=== PATIENT | female | born 1985 | race Caucasian/White ===

== ENCOUNTER 2016-11-11 17:56 | Emergency (ER) | payer OTHER ==
[2016-11-11 18:10] VITALS: BP 139/90; PULSE 99; TEMP 98.5; BMI 28.3
[2016-11-11] MEDS ORDERED: predniSONE 20 MG TABLET (UD) ONE (18:54)
[2016-11-11] MEDS ORDERED: ALBUTEROL SO4 2.5/IPRATROPIUM 0.5 INH SOL 3 ML VIAL.NEB. NEB ONE ×3 (18:55→19:30)
[2016-11-11] MEDS ORDERED: predniSONE 20 MG TABLET (UD) PO ONE (19:01)
[2016-11-11] MEDS ORDERED: KETOROLAC TROMETHAMINE 60 MG/2 ML VIAL ONE (19:15)
--- NOTE | 2016-11-11 19:20 | PDOC ---
History of Present Illness - General Chief Complaint: Cold Symptoms Stated Complaint: PAIN, ACUTE Time Seen by Provider: 11/11/16 18:48 History Source: Patient Exam Limitations: No Limitations - History of Present Illness Initial Comments: 11/11/16 19:09 Patient is a 31-year-old female, history of asthma presents to the emergency department with one week history of bronchospasm, productive cough, wheezing. Patient denies any back pain, no chest pain or shortness of breath. No fever. Patient with back pain from coughing. Past Medical History: Denies. Allergies: No known allergies Medications: None Family History: Non-contributory Social History: Denies smoking, alcohol use, or IVDU Vital signs on arrival are notable for pulse of 99 Review of Systems GENERAL/CONSTITUTIONAL: No fever or chills. No weakness. No weight change. HEAD, EYES, EARS, NOSE AND THROAT: No change in vision. No ear pain or discharge. No sore throat. CARDIOVASCULAR: No chest pain or shortness of breath. RESPIRATORY: Cough, wheezing, no hemoptysis GASTROINTESTINAL: No nausea, vomiting, diarrhea or constipation. No rectal bleeding. GENITOURINARY: No dysuria, frequency, or change in urination. MUSCULOSKELETAL: No joint or muscle swelling or pain. No neck pain, lower back pain SKIN AND BREASTS: No rash or easy bruising. NEUROLOGIC: No headache, vertigo, loss of consciousness, or loss of sensation. HEMATOLOGIC/LYMPHATIC: No anemia, easy bleeding, or history of blood clots. ALLERGIC/IMMUNOLOGIC: No hives or skin allergy. No latex allergy. Physical Exam: GENERAL: The patient is awake, alert, and fully oriented, in no acute distress. HEAD: Normal with no signs of trauma. EYES: Pupils equal, round and reactive to light, extraocular movements intact, sclera anicteric, conjunctiva clear. ENT: Ears normal, nares patent, oropharynx clear without exudates. Moist mucous membranes. No uvula deviation NECK: Normal range of motion, supple without lymphadenopathy, JVD, or masses. LUNGS: Breath sounds with rhonchi bilaterally, expiratory wheezes, decrease at the bases, bronchospasm HEART: Regular rate and rhythm, normal S1 and S2 without murmur, rub or gallop. ABDOMEN: Soft, nontender, normoactive bowel sounds. No guarding, no rebound. No masses. No bruising or abrasions MUSCULOSKELETAL: Normal range of motion, no edema. No clubbing or cyanosis. No cords, erythema, or tenderness. No CVA Tenderness with fist. NEUROLOGICAL: Cranial nerves II through XII grossly intact. Normal speech, normal gait. SKIN: Warm, Dry, normal turgor, no rashes or lesions noted. Past History - Past Medical History Allergies/Adverse Reactions: Allergies Allergy/AdvReac Type Severity Reaction Status Date / Time No Known Drug Allergies Allergy Verified 11/11/16 18:10 fruit Allergy Itching Uncoded 11/11/16 18:10 Home Medications: Ambulatory Orders Pnv with Ca,No.72/Iron/FA [ Plus Tablet] 1 tab PO DAILY 03/23/16 Albuterol Sulfate Inhaler - [Ventolin HFA Inhaler -] 2 inh PO Q4H #1 inh Azithromycin [Zithromax 250mg Tablets -] 250 mg PO UTDICT #6 tab 11/11/16 Ibuprofen [Motrin -] 800 mg PO QID 11/11/16 Prednisone [Deltasone -] 20 mg PO DAILY #5 tablet 11/11/16 Anemia: No Asthma: Yes Cancer: No Cardiac Disorders: No CVA: No COPD: No CHF: No Dementia: No Diabetes: No GI Disorders: No Disorders: No HTN: No Hypercholesterolemia: No Liver Disease: No Seizures: No Thyroid Disease: No - Surgical History Abdominal Surgery: Yes (laproscopy) Appendectomy: No Cardiac Surgery: No Cholecystectomy: No Lung Surgery: No Neurologic Surgery: No Orthopedic Surgery: No - Suicide/Smoking/Psychosocial Hx Smoking History: Never smoked Have you smoked in the past 12 months: No Hx Alcohol Use: No Drug/Substance Use Hx: No Substance Use Type: None Hx Substance Use Treatment: No *Physical Exam - Vital Signs Last Vital Signs Temp Pulse Resp BP Pulse Ox 98.5 F 99 H 20 139/90 98 11/11/16 18:07 11/11/16 18:07 11/11/16 18:07 11/11/16 18:07 11/11/16 18:07 ED Treatment Course - Medications Given in the ED: ED Medications Discontinued Medications Generic Name Dose Route Start Last Admin Trade Name Freq PRN Reason Stop Dose Admin Albuterol/Ipratropium 1 amp 11/11/16 19:01 11/11/16 19:03 Duoneb - NEB 11/11/16 19:02 1 amp ONCE ONE Administration Prednisone 60 mg 11/11/16 19:01 11/11/16 19:03 Deltasone - PO 11/11/16 19:02 60 mg ONCE ONE Administration Medical Decision Making - Medical Decision Making 11/11/16 19:20 A/P: Patient here for evaluation, bronchospasm, productive cough, lower back pain with coughing. Patient with no risk factors for PE, no clinical signs Patient with clinical signs of bronchitis. Bronchospasm. Patient is afebrile, Combivent treatment given, prednisone 60 mg by mouth. Repeat Ventolin given. 11/11/16 19:Patient given Toradol 60 mg IM times one given for back pain, patient states relief of pain also breathing comfortably after treatment and Toradol. We'll DC patient home on azithromycin, albuterol, prednisone 20 mg daily for the next 5 days, follow- up with her PMD. Patient oxygen saturations are 100% patient with no accessory muscle use, no bronchospasm, breathing comfortably after treatments. I discussed the physical exam findings, ancillary test results and final diagnoses with the patient. I answered all of the patient's questions. The patient was satisfied with the care received and felt comfortable with the discharge plan and treatment plan. The patient will call to arrange follow-up and will return to the Emergency Department with any new, persistant or worsening symptoms. *DC/Admit/Observation/Transfer Diagnosis at time of Disposition: Bronchitis - Discharge Dispostion Disposition: HOME Condition at time of disposition: Good Admit: No - Prescriptions Prescriptions: Prednisone [Deltasone -] 20 mg PO DAILY #5 tablet Albuterol Sulfate Inhaler - [Ventolin HFA Inhaler -] 2 inh PO Q4H #1 inh Azithromycin [Zithromax 250mg Tablets -] 250 mg PO UTDICT #6 tab - Referrals Referrals: Katey Diaz MD [Primary Care Provider] - - Patient Instructions Printed Discharge Instructions: DI for Acute Bronchitis Additional Instructions: Keep head of bed elevated 45 when sleeping Treatments every 4 hours as needed Antibiotics as ordered until completed Motrin for pain Followup in the primary care doctor's office in 2 days for evaluation. If any respiratory distress, increased cough, inability to drink, increased wheezing please return immediately to emergency department. - Post Discharge Activity Forms/Work/School Notes: Back to Work
[2016-11-11] MEDS ORDERED: ALBUTEROL SO4 0.083% IH SOL 2.5 MG/3 ML VIAL.NEB. NEB ONE ×2 (19:28→19:46)
== END 2016-11-11 19:57 | disposition home or self-care (01) ==
LOC: JERFT 17:56
PROC: 3E0F7GC Introduction of Other Therapeutic Substance into Respiratory Tract, Via Natural or Artificial Opening (ICD-10-PCS; principal; 2016-11-11)
DX: J40 Bronchitis, not specified as acute or chronic (principal)
CPT/HCPCS: 99281-25

== ENCOUNTER 2017-03-29 08:40 | Emergency (ER) | payer OTHER ==
[2017-03-29 09:09] VITALS: BP 123/73; PULSE 110; TEMP 99.1; BMI 28.3
--- NOTE | 2017-03-29 10:30 | PDOC ---
History of Present Illness - General History Source: Patient Exam Limitations: No Limitations - History of Present Illness Initial Comments: 03/29/17 10:36 The patient is a 31 yo F with PMHx of Asthma who presents to the ED for flu- like symptoms for the past 2 days. Patient endorses cough, chest congestion, persistent fevers and body aches. Patient took Motrin yesterday night however denies any relief. Patient reports sick contact at home (son). Due to persistent fever, patient reports to the ED for further evaluation. Allergies: NKA Past surgical history: Social history: PCP: <Carolina Little - Last Filed: 03/29/17 10:36> <Alyson Tran - Last Filed: 03/29/17 12:04> - General Chief Complaint: Cold Symptoms Stated Complaint: CHEST PAIN, SOB Time Seen by Provider: 03/29/17 10:27 Past History <Carolina Little - Last Filed: 03/29/17 10:36> - Past Medical History Anemia: No Asthma: Yes Cancer: No Cardiac Disorders: No CVA: No COPD: No CHF: No Dementia: No Diabetes: No GI Disorders: No Disorders: No HTN: No Hypercholesterolemia: No Liver Disease: No Seizures: No Thyroid Disease: No - Surgical History Abdominal Surgery: Yes (laproscopy) Appendectomy: No Cardiac Surgery: No Cholecystectomy: No Lung Surgery: No Neurologic Surgery: No Orthopedic Surgery: No - Suicide/Smoking/Psychosocial Hx Smoking History: Never smoked Have you smoked in the past 12 months: No Information on smoking cessation initiated: No Hx Alcohol Use: No Drug/Substance Use Hx: No Substance Use Type: None Hx Substance Use Treatment: No <Alyson Tran - Last Filed: 03/29/17 12:04> - Past Medical History Allergies/Adverse Reactions: Allergies Allergy/AdvReac Type Severity Reaction Status Date / Time No Known Drug Allergies Allergy Verified 03/29/17 09:06 fruit Allergy Itching Uncoded 03/29/17 09:06 Home Medications: Ambulatory Orders Pnv,Calcium 72/Iron/Folic Acid [ Plus Tablet] 1 tab PO DAILY 03/23/16 Albuterol Sulfate Inhaler - [Ventolin HFA Inhaler -] 2 inh PO Q4H #1 inh Azithromycin [Zithromax 250mg Tablets -] 250 mg PO UTDICT #6 tab 11/11/16 Ibuprofen [Motrin -] 800 mg PO QID 11/11/16 Prednisone [Deltasone -] 20 mg PO DAILY #5 tablet 11/11/16 Albuterol Sulfate Inhaler - [Ventolin HFA Inhaler -] 1 - 2 inh PO QID #1 inhaler 03/29/17 Oseltamivir Phosphate [Tamiflu -] 75 mg PO BID #10 capsule 03/29/17 Prednisone [Deltasone -] 40 mg PO DAILY #8 tablet 03/29/17 Review of Systems - Review of Systems Able to Perform ROS?: Yes Comments:: 03/29/17 10:39 GENERAL/CONSTITUTIONAL: No fever or chills. + weakness. +body aches. HEAD, EYES, EARS, NOSE AND THROAT: No change in vision. No ear pain or discharge. No sore throat. GASTROINTESTINAL: No nausea, vomiting, diarrhea or constipation. GENITOURINARY: No dysuria, frequency, or change in urination. CARDIOVASCULAR: No chest pain or shortness of breath. RESPIRATORY: + cough, wheezing, or hemoptysis. MUSCULOSKELETAL: No joint or muscle swelling or pain. No neck or back pain. SKIN: No rash NEUROLOGIC: No headache, vertigo, loss of consciousness, or change in strength/ sensation. ENDOCRINE: No increased thirst. No abnormal weight change. HEMATOLOGIC/LYMPHATIC: No anemia, easy bleeding, or history of blood clots. ALLERGIC/IMMUNOLOGIC: No hives or skin allergy. <Carolina Little - Last Filed: 03/29/17 10:36> *Physical Exam - Vital Signs Last Vital Signs Temp Pulse Resp BP Pulse Ox 99.1 F 110 H 18 123/73 99 03/29/17 09:06 03/29/17 09:06 03/29/17 09:06 03/29/17 09:06 03/29/17 09:06 <Carolina Little - Last Filed: 03/29/17 10:36> - Vital Signs Last Vital Signs Temp Pulse Resp BP Pulse Ox 99.1 F 110 H 18 123/73 99 03/29/17 09:06 03/29/17 09:06 03/29/17 09:06 03/29/17 09:06 03/29/17 09:06 - Physical Exam Comments: GENERAL: Awake, alert, and fully oriented, in no acute distress HEAD: No signs of trauma EYES: PERRLA, EOMI, sclera anicteric, conjunctiva clear ENT: Auricles normal inspection, hearing grossly normal, nares patent, oropharynx clear without exudates. Moist mucosa NECK: Normal ROM, supple, no lymphadenopathy, JVD, or masses LUNGS: Slightly dec air entry B/L. No wheezes, and no crackles HEART: Regular rate and rhythm, normal S1 and S2, no murmurs, rubs or gallops ABDOMEN: Soft, nontender, normoactive bowel sounds. No guarding, no rebound. No masses EXTREMITIES: Normal range of motion, no edema. No clubbing or cyanosis. No cords, erythema, or tenderness NEUROLOGICAL: Cranial nerves II through XII grossly intact. Normal speech, normal gait SKIN: Warm, Dry, normal turgor, no rashes or lesions noted. <Alyson Tran - Last Filed: 03/29/17 12:04> Medical Decision Making - Medical Decision Making 03/29/17 12:04 Pt reports improvement in symptoms. Stable for DC home. <Alyson Tran - Last Filed: 03/29/17 12:04> *DC/Admit/Observation/Transfer - Attestations Scribe Attestion: 03/29/17 10:40 Documentation prepared by Carolina Little, acting as medical record coder for Alyson Tran MD <Carolina Little - Last Filed: 03/29/17 10:36> - Discharge Dispostion Admit: No <Alyson Tran - Last Filed: 03/29/17 12:04> Diagnosis at time of Disposition: Influenza - Discharge Dispostion Disposition: HOME Condition at time of disposition: Stable - Prescriptions Prescriptions: Albuterol Sulfate Inhaler - [Ventolin HFA Inhaler -] 1 - 2 inh PO QID #1 inhaler Oseltamivir Phosphate [Tamiflu -] 75 mg PO BID #10 capsule Prednisone [Deltasone -] 40 mg PO DAILY #8 tablet - Patient Instructions Printed Discharge Instructions: DI for Influenza -- Adult
[2017-03-29] MEDS ORDERED: predniSONE 20 MG TABLET (UD) PO ONE (10:37)
[2017-03-29] MEDS ORDERED: ACETAMINOPHEN 325 MG TABLET (FP) PO ONE (10:37)
[2017-03-29] MEDS ORDERED: predniSONE 20 MG TABLET (UD) ONE (10:39)
[2017-03-29] MEDS ORDERED: ACETAMINOPHEN 325 MG TABLET (FP) ONE (10:39)
[2017-03-29] MEDS: ALBUTEROL SO4 2.5/IPRATROPIUM 0.5 INH SOL 3 ML VIAL.NEB. NEB SCH ×3 (11:00→11:28)
--- NOTE | 2017-03-29 12:42 | EKG ---
Test Reason : Blood Pressure : / mmHG Vent. Rate : 100 BPM Atrial Rate : 100 BPM P-R Int : 114 ms QRS Dur : 102 ms QT Int : 336 ms P-R-T Axes : 004 035 036 degrees QTc Int : 433 ms NORMAL SINUS RHYTHM NORMAL ECG WHEN COMPARED WITH ECG OF 31-JUL-2013 16:04, NO SIGNIFICANT CHANGE WAS FOUND Confirmed by WILBERT GONSALVES MD ([id number]) on 03/29/2017 12:42:01 PM Referred By: Confirmed By:WILBERT GONSALVES MD
== END 2017-03-29 12:09 | disposition home or self-care (01) ==
LOC: JER 08:40 → JERFT 08:40 → JER 12:09
DX: J11.1 Influenza due to unidentified influenza virus with other respiratory manifestations (principal)
CPT/HCPCS: 71046-TC-FY; 84703; 93005; 93010; 99282-25

== ENCOUNTER 2017-09-11 14:59 | Emergency (ER) | payer OTHER ==
[2017-09-11 15:18] VITALS: BP 140/74; TEMP 100.1; BMI 30.2
[2017-09-11] MEDS ORDERED: SODIUM CHLORIDE 1,000 ML IV STA (17:06)
[2017-09-11] MEDS ORDERED: ACETAMINOPHEN 500 MG TABLET (FP) PO ONE (17:07)
[2017-09-11] MEDS ORDERED: ALBUTEROL SO4 0.083% IH SOL 2.5 MG/3 ML VIAL.NEB. NEB ONE ×2 (17:08→17:15)
--- NOTE | 2017-09-11 17:09 | PDOC ---
Attending Attestation - Resident Resident Name: Troy Torres - ED Attending Attestation I have performed the following: I have examined & evaluated the patient, The case was reviewed & discussed with the resident, I agree w/resident's findings & plan, Exceptions are as noted - HPI HPI: 09/11/17 17:09 32y F hx of mild asthma rpresents with complaint of a variaty of sypmtoms including including body ahces, nasal congestion, dry cough, mild sneezing, subjective efver for the past 2 days - pt notes her daugther was sick a few days ago after starting day care. pt ntoes some wheezing which is better with her albuterol. Pt denies any cp, hamm, leg swelling, rash. pt taking motrin without significant impormvent. - Physicial Exam PE: 09/11/17 18:04 GENERAL: The patient is awake, alert, and fully oriented, Nontoxic - in no acute distress. HEAD: Normocephalic, atraumatic. EYES: extraocular movements intact, sclera anicteric, conjunctiva clear. ENT: Normal voice, Moist mucous membranes. NECK: Normal range of motion, supple LUNGS: Breath sounds equal, clear to auscultation bilaterally. No wheezes, no rhonchi, no rales. HEART: tachcyardic, normal S1 and S2 without murmur, rub or gallop. ABDOMEN: Soft, nontender, normoactive bowel sounds. No guarding, no rebound. . No CVA tenderness EXTREMITIES: Normal range of motion, no edema. NEUROLOGICAL: No facial assymetry, Normal speech, PSYCH: Normal mood, normal affect. SKIN: Warm to touch, Dry, normal turgor, - Medical Decision Making 09/11/17 18:04 Suspect URI the patient's vitals were noted for heart rate of 130 in triage, suspect may be due to dehydration, fever Will give the patient fluids, Tylenol, will obtain blood work, influenza, chest x-ray to rule out pneumonia The patient is otherwise well-appearing 09/11/17 19:24 pts labs unremarkble HR improved, pt clinically feels well will dc with supportive care at home return precautions were discussed I discussed the physical exam findings, ancillary test results and final diagnoses with the patient. I answered all of the patient's questions. The patient was satisfied with the care received and felt comfortable with the discharge plan and treatment plan. The patient will call their primary care physician within 24 hours to arrange follow-up and will return to the Emergency Department with any new, persistent or worsening symptoms. Heart Score/ECG Review - ECG Impressions Comment:: 09/11/17 18:04 Twelve-lead EKG was performed and reviewed by me. There is normal sinus rhythm with a rate of 119 Nonspecific T wave abnormality
[2017-09-11] MEDS ORDERED: ACETAMINOPHEN 325 MG TABLET (FP) ONE (17:15)
--- NOTE | 2017-09-11 17:17 | PDOC ---
History of Present Illness - General Chief Complaint: Cold Symptoms Stated Complaint: CHEST PAIN Time Seen by Provider: 09/11/17 16:59 History Source: Patient Exam Limitations: No Limitations - History of Present Illness Initial Comments: 09/11/17 17:11 Patient is a 32F with history of mild asthma (no hospitalizations, only on albuterol intermittently) here today complaining of flu symptoms for the past 2 days. Patient endorses fevers, chills, body aches, rhinorrhea, cough. Patient reports that her daughter was sick and is in day care. Patient denies chest pain , shortness of breath. Endorses weakness. Currently on period. Denies nausea, vomiting, abdominal pain. Patient reports taking ibuprofen at home. Past History - Past Medical History Allergies/Adverse Reactions: Allergies Allergy/AdvReac Type Severity Reaction Status Date / Time No Known Drug Allergies Allergy Verified 09/11/17 15:18 fruit Allergy Itching Uncoded 09/11/17 15:18 Home Medications: Ambulatory Orders NK [No Known Home Medication] 09/11/17 Anemia: No Asthma: Yes Cancer: No Cardiac Disorders: No CVA: No COPD: No CHF: No Dementia: No Diabetes: No GI Disorders: No Disorders: No HTN: No Hypercholesterolemia: No Liver Disease: No Seizures: No Thyroid Disease: No - Surgical History Abdominal Surgery: Yes (laproscopy) Appendectomy: No Cardiac Surgery: No Cholecystectomy: No Lung Surgery: No Neurologic Surgery: No Orthopedic Surgery: No - Suicide/Smoking/Psychosocial Hx Smoking History: Never smoked Have you smoked in the past 12 months: No Information on smoking cessation initiated: No Hx Alcohol Use: No Drug/Substance Use Hx: No Substance Use Type: None Hx Substance Use Treatment: No Review of Systems - Review of Systems Comments:: 09/11/17 17:14 GENERAL/CONSTITUTIONAL: +fever +chills. No weakness. HEAD, EYES, EARS, NOSE AND THROAT: No change in vision. No sore throat. CARDIOVASCULAR: No chest pain or shortness of breath RESPIRATORY: + cough, +wheezing. No hemoptysis. GASTROINTESTINAL: No nausea, vomiting, diarrhea or constipation. GENITOURINARY: No dysuria, frequency, or change in urination. MUSCULOSKELETAL: +diffuse body aches. No neck or back pain. SKIN: No rash NEUROLOGIC: No headache, vertigo, loss of consciousness, or change in strength/ sensation. ENDOCRINE: No increased thirst. No abnormal weight change HEMATOLOGIC/LYMPHATIC: No anemia, easy bleeding, or history of blood clots. ALLERGIC/IMMUNOLOGIC: No hives or skin allergy. *Physical Exam - Vital Signs Last Vital Signs Temp Pulse Resp BP Pulse Ox 100.1 F H 130 H 18 140/74 98 09/11/17 15:15 09/11/17 15:15 09/11/17 15:15 09/11/17 15:15 09/11/17 15:15 - Physical Exam Comments: 09/11/17 17:14 GENERAL: Awake, alert, and fully oriented, in no acute distress HEAD: No signs of trauma, normocephalic, atraumatic EYES: PERRLA, EOMI, sclera anicteric, conjunctiva clear ENT: Auricles normal inspection, hearing grossly normal, nares patent, oropharynx clear without exudates. Moist mucosa NECK: Normal ROM, supple, no lymphadenopathy, JVD, or masses LUNGS: No distress, speaks full sentences, scattered wheezes bilaterally HEART: Regular rate and rhythm, normal S1 and S2, no murmurs, rubs or gallops, peripheral pulses normal and equal bilaterally. ABDOMEN: Soft, nontender, normoactive bowel sounds. No guarding, no rebound. No masses EXTREMITIES: Normal inspection, Normal range of motion, no edema. No clubbing or cyanosis. NEUROLOGICAL: Cranial nerves II through XII grossly intact. Normal speech, normal gait, no focal sensorimotor deficits SKIN: Warm, Dry, normal turgor, no rashes or lesions noted. ED Treatment Course - LABORATORY CBC & Chemistry Diagram: 09/11/17 17:20 09/11/17 17:20 - RADIOLOGY Radiology Studies Ordered: Category Date Time Status CHEST PA & LAT [RAD] Stat Radiology 09/11/17 17:07 Ordered Medical Decision Making - Medical Decision Making 09/11/17 17:15 Patient is 32F with history of asthma here today complaining of flu symptoms. Vital signs notable for HR in 130s. Temp 100.1 orally, suspect patient is dehydrated has has true fever. Will rule out anemia, , arrhythmia. Believe patient most likely has influenza or other viral syndrome. Will evaluate with cbc, cmp, ekg, serum preg, cxr, rapid flu. Will treat with 1L NS, albuterol, tylenol. Likely discharge. 09/11/17 18:04 EKG shows sinus tachycardia with rate of 119. No st elevations/depressions. No significant t-wave abnormalities. Normal intervals. Normal axis. 09/11/17 19:07 Laboratory Tests 09/11/17 09/11/17 09/11/17 17:20 17:20 17:20 WBC 8.3 Hgb 13.8 Plt Count 249 D BUN 9 Creatinine 0.7 Serum , Qual Negative CBC/CMP normal. Preg negative. Flu negative. CXR pending. 09/11/17 19:33 CXR clear, will discharge with return precautions. Repeat HR 106, patient feels much improved. Will discharge home. *DC/Admit/Observation/Transfer Diagnosis at time of Disposition: Viral illness - Discharge Dispostion Disposition: HOME Condition at time of disposition: Good Decision to Admit order: No - Referrals - Patient Instructions Printed Discharge Instructions: DI for Common Cold Additional Instructions: Please return if you have any new, worsening or concerning symptoms Please follow up with your primary care physician in the next week. Please drink plenty of fluids. - Post Discharge Activity Forms/Work/School Notes: Back to Work
[2017-09-11 17:25] LABS: HEMATOCRIT 40.8 % (32.4-45.2); HEMOGLOBIN 13.8 GM/dL (10.7-15.3); MCH 29.1 pg (25.7-33.7); MCHC 33.7 g/dl (32.0-36.0); MEAN CELL VOLUME 86.3 fl (80-96); MEAN PLT VOLUME 8.2 fl (7.5-11.1); PLATELET COUNT 249 K/MM3 (134-434); RBC 4.73 M/mm3 (3.60-5.2); RDW 13.6 % (11.6-15.6); WHITE BLOOD COUNT 8.3 K/mm3 (4.0-10.0)
[2017-09-11 18:03] LABS: ALK PHOS 79 U/L (45-117); ANION GAP 8 (8-16); BILIRUBIN,TOTAL 0.4 mg/dL (0.2-1.0); BLOOD UREA NITROGEN 9 mg/dL (7-18); CALCIUM 9.3 mg/dL (8.5-10.1); CHLORIDE 104 mmol/L (98-107); CO2 27 mmol/L (21-32); CREATININE 0.7 mg/dL (0.55-1.02); GLUCOSE,RANDOM 95 mg/dL (74-106); POTASSIUM 4.4 mmol/L (3.5-5.1); SGOT/AST 17 U/L (15-37); SGPT/ALT 22 U/L (12-78); SODIUM 139 mmol/L (136-145)
[2017-09-11 19:41] VITALS: PULSE 106
--- NOTE | 2017-09-12 15:00 | EKG ---
Test Reason : Blood Pressure : / mmHG Vent. Rate : 119 BPM Atrial Rate : 119 BPM P-R Int : 180 ms QRS Dur : 096 ms QT Int : 306 ms P-R-T Axes : 055 043 056 degrees QTc Int : 430 ms SINUS TACHYCARDIA NONSPECIFIC T WAVE ABNORMALITY ABNORMAL ECG WHEN COMPARED WITH ECG OF 29-MAR-2017 09:02, NONSPECIFIC T WAVE ABNORMALITY, WORSE IN INFERIOR LEADS NONSPECIFIC T WAVE ABNORMALITY NOW EVIDENT IN LATERAL LEADS Confirmed by VINCE BAXTER MD ([id number]) on 09/12/2017 3:00:02 PM Referred By: Confirmed By:VINCE BAXTER MD
== END 2017-09-11 19:52 | disposition home or self-care (01) ==
LOC: JER 14:59
PROC: 3E0337Z Introduction of Electrolytic and Water Balance Substance into Peripheral Vein, Percutaneous Approach (ICD-10-PCS; principal; 2017-09-11)
PROC: 3E0F7GC Introduction of Other Therapeutic Substance into Respiratory Tract, Via Natural or Artificial Opening (ICD-10-PCS; 2017-09-11)
DX: J00 Acute nasopharyngitis [common cold] (principal); B97.89 Other viral agents as the cause of diseases classified elsewhere; Z87.09 Personal history of other diseases of the respiratory system
CPT/HCPCS: 36415; 71046-TC-FY; 80053; 84703; 85027; 87804; 93005; 93010; 94640; 96360; 99282-25; J7030

== ENCOUNTER 2018-10-16 18:44 | Emergency (ER) | payer OTHER ==
[2018-10-16 18:52] VITALS: BMI 28.3
--- NOTE | 2018-10-16 19:37 | PDOC ---
History of Present Illness <Airam Cottrell - Last Filed: 10/16/18 22:09> - History of Present Illness Initial Comments: 10/16/18 20:22 33 year old woman with no significant pmhx who presents with nausea and vomiting onset at 11am today associated with epigastric pain. She reports that she does not normally drink but last night but went to a [employer] last night and drank a significant amount of beer. The patient notes she had some nausea and diaphoresis but did not have any chest pain or shortness of breath. She has no other complaints at bedside. ROS GENERAL/CONSTITUTIONAL: No fever or chills. No weakness. HEAD, EYES, EARS, NOSE AND THROAT: No change in vision. No ear pain or discharge. No sore throat. CARDIOVASCULAR: No chest pain or shortness of breath RESPIRATORY: No cough, wheezing, or hemoptysis. GASTROINTESTINAL: No diarrhea or constipation. GENITOURINARY: No dysuria, frequency, or change in urination. MUSCULOSKELETAL: No joint or muscle swelling or pain. No neck or back pain. SKIN: No rash NEUROLOGIC: No headache, vertigo, loss of consciousness, or change in strength/ sensation. PE GENERAL: Awake, alert, and fully oriented, wretching at bedside HEAD: No signs of trauma, normocephalic, atraumatic EYES: EOMI, sclera anicteric, conjunctiva clear ENT: oropharynx clear without exudates. Moist mucosa NECK: Normal ROM, supple LUNGS: No distress, speaks full sentences, clear to auscultation bilaterally HEART: Regular rate and rhythm, normal S1 and S2, no murmurs, rubs or gallops, peripheral pulses normal and equal bilaterally. ABDOMEN: Soft, + epigastric tenderness, normoactive bowel sounds. No guarding, no rebound. No masses EXTREMITIES : Normal inspection, Normal range of motion, no edema. No clubbing or cyanosis. NEUROLOGICAL: Cranial nerves II through XII grossly intact. Normal speech, normal gait, no focal sensorimotor deficits SKIN: Warm, Dry, normal turgor, no rashes or lesions noted MDM 33 year old woman with no significant pmhx who presents with nausea and vomiting onset at 11am today associated with epigastric pain. DDX including but not limited to: gastritis 2/2 alcohol ingestion r/o pancreatitis W/U: - cbc, cmp, lipase, ekg, serum preg TX: - zofran, pepcid, maalox ED Course: EKG: normal sinus rhythm HR 71, narrow QRS, ST elevation in V2, V3 Maria Luisa Magana, PGY2 Emergency Medicine <Maria Luisa Magana - Last Filed: 10/16/18 22:46> - General Chief Complaint: Nausea/Vomiting Stated Complaint: PASSING OUT Time Seen by Provider: 10/16/18 19:37 Past History <Airam Cottrell - Last Filed: 10/16/18 22:09> - Past Medical History Anemia: No Asthma: Yes Cancer: No Cardiac Disorders: No CVA: No COPD: No CHF: No Dementia: No Diabetes: No GI Disorders: No Disorders: No HTN: No Hypercholesterolemia: No Liver Disease: No Seizures: No Thyroid Disease: No - Surgical History Abdominal Surgery: Yes (laproscopy) Appendectomy: No Cardiac Surgery: No Cholecystectomy: No Lung Surgery: No Neurologic Surgery: No Orthopedic Surgery: No - Suicide/Smoking/Psychosocial Hx Smoking History: Never smoked Have you smoked in the past 12 months: No Hx Alcohol Use: Yes Drug/Substance Use Hx: No Substance Use Type: None Hx Substance Use Treatment: No <Maria Luisa Magana - Last Filed: 10/16/18 22:46> - Past Medical History Allergies/Adverse Reactions: Allergies Allergy/AdvReac Type Severity Reaction Status Date / Time No Known Drug Allergies Allergy Verified 10/16/18 18:49 fruit Allergy Itching Uncoded 10/16/18 18:49 Home Medications: Ambulatory Orders Albuterol Sulfate [Proair Respiclick] 90 mcg IH PRN PRN 10/16/18 *Physical Exam - Vital Signs Last Vital Signs Temp Pulse Resp BP Pulse Ox 97.9 F 74 19 143/94 100 10/16/18 19:50 10/16/18 19:50 10/16/18 19:50 10/16/18 19:50 10/16/18 19:50 <Airam Cottrell - Last Filed: 10/16/18 22:09> - Vital Signs Last Vital Signs Temp Pulse Resp BP Pulse Ox 97.8 F 112 H 20 146/99 97 10/16/18 18:45 10/16/18 18:45 10/16/18 18:45 10/16/18 18:45 10/16/18 18:45 <Maria Luisa Magana - Last Filed: 10/16/18 22:46> ED Treatment Course - LABORATORY CBC & Chemistry Diagram: 10/16/18 20:00 10/16/18 20:00 - ADDITIONAL ORDERS Additional order review: Laboratory Results 10/16/18 10/16/18 10/16/18 20:00 20:00 20:00 Sodium 142 Potassium 3.9 Chloride 106 Carbon Dioxide 23 Anion Gap 13 BUN 12.3 Creatinine 0.8 Est GFR (CKD-EPI)AfAm 111.48 Est GFR (CKD-EPI)NonAf 96.19 Random Glucose 123 H Calcium 9.7 Magnesium 2.1 Total Bilirubin 0.4 AST 51 H ALT 44 Alkaline Phosphatase 74 Troponin I < 0.02 Total Protein 8.4 H Albumin 4.3 Lipase 166 Serum , Qual Negative Alcohol, Quantitative Cancelled < 3.0 10/16/18 20:00 RBC 5.04 MCV 86.1 MCHC 33.4 RDW 13.0 MPV 8.2 Neutrophils % 89.4 H D Lymphocytes % 7.4 L D Monocytes % 2.9 L Eosinophils % 0.0 D Basophils % 0.3 - Medications Given in the ED: ED Medications Discontinued Medications Generic Name Dose Route Start Last Admin Trade Name Trq PRN Reason Stop Dose Admin Acetaminophen 1,000 mg 10/16/18 20:38 10/16/18 20:50 Ofirmev Injection - IVPB 10/16/18 20:39 1,000 mg ONCE ONE Administration Al Hydroxide/Mg Hydroxide 30 ml 10/16/18 19:57 10/16/18 20:25 Mylanta Oral Suspension - PO 10/16/18 19:58 30 ml ONCE ONE Administration Famotidine/Sodium Chloride 20 mg in 50 mls @ 100 mls/hr 10/16/18 19:57 20:25 Pepcid 20 Mg Premixed Ivpb - IVPB 10/16/18 20:26 100 mls/hr ONCE ONE Administration Ondansetron HCl 4 mg 10/16/18 19:57 10/16/18 20:25 Zofran Injection IVPUSH 10/16/18 19:58 4 mg ONCE ONE Administration <Airam Cottrell - Last Filed: 10/16/18 22:09> - LABORATORY CBC & Chemistry Diagram: 10/16/18 20:00 10/16/18 20:00 <Maria Luisa Magana - Last Filed: 10/16/18 22:46> *DC/Admit/Observation/Transfer - Discharge Dispostion Decision to Admit order: No <Airam Cottrell - Last Filed: 10/16/18 22:09> <Maria Luisa Magana - Last Filed: 10/16/18 22:46> Diagnosis at time of Disposition: Hangover without complication - Discharge Dispostion Disposition: HOME Condition at time of disposition: Improved - Referrals Referrals: Katey Diaz MD [Primary Care Provider] - - Patient Instructions Printed Discharge Instructions: True or False: You Can Cure a Hangover, DI for Vomiting -- Adult Additional Instructions: You were seen in the ED for complaints of nausea and vomiting after alcohol drinking. Your labwork and imaging were unremarkable and you showed clinical improvement Return to the ED if you experience worsening abdominal pain, fever, nausea, vomiting and blood in vomit - Post Discharge Activity Forms/Work/School Notes: Back to Work
[2018-10-16] MEDS ORDERED: SODIUM CHLORIDE 1,000 ML IV SCH (19:45)
[2018-10-16] MEDS ORDERED: FAMOTIDINE 20 MG/50 ML IVPB 20 MG/50 ML MG IVPB ONE ×2 (19:57→20:10)
[2018-10-16] MEDS ORDERED: MAG HYDROX/AL HYDROX/SIMETH 30 ML UNIT-DOSE CUP PO ONE (19:57)
[2018-10-16] MEDS ORDERED: ONDANSETRON 4 MG/2 ML VIAL IVPUSH ONE (19:57)
[2018-10-16] MEDS ORDERED: MAG HYDROX/AL HYDROX/SIMETH 30 ML UNIT-DOSE CUP ONE (20:09)
[2018-10-16] MEDS ORDERED: ONDANSETRON 4 MG/2 ML VIAL ONE (20:10)
[2018-10-16 20:16] LABS: BASO % 0.3 % (0-2.0); HEMATOCRIT 43.4 % (32.4-45.2); HEMOGLOBIN 14.5 GM/dL (10.7-15.3); LYMPH % 7.4 % (8-40); MCH 28.8 pg (25.7-33.7); MCHC 33.4 g/dl (32.0-36.0); MEAN CELL VOLUME 86.1 fl (80-96); MEAN PLT VOLUME 8.2 fl (7.5-11.1); MONO % 2.9 % (3.8-10.2); NEUT % 89.4 % (42.8-82.8); PLATELET COUNT 272 K/MM3 (134-434); RBC 5.04 M/mm3 (3.60-5.2); WHITE BLOOD COUNT 14.1 K/mm3 (4.0-10.0)
[2018-10-16] MEDS ORDERED: ACETAMINOPHEN 1000 MG/100 ML VIAL (NON FORMULARY) IVPB ONE (20:38)
[2018-10-16] MEDS ORDERED: ACETAMINOPHEN INJECTION 100 ML IVPB ONE (20:47)
[2018-10-16 21:06] LABS: ALBUMIN 4.3 g/dl (3.4-5.0); ALK PHOS 74 U/L (45-117); ANION GAP 13 MMOL/L (8-16); BILIRUBIN,TOTAL 0.4 mg/dL (0.2-1); BLOOD UREA NITROGEN 12.3 mg/dL (7-18); CALCIUM 9.7 mg/dL (8.5-10.1); CHLORIDE 106 mmol/L (98-107); CO2 23 mmol/L (21-32); CREATININE 0.8 mg/dL (0.55-1.3); GLUCOSE,RANDOM 123 mg/dL (74-106); LIPASE 166 U/L (73-393); MAGNESIUM 2.1 mg/dL (1.8-2.4); POTASSIUM 3.9 mmol/L (3.5-5.1); SGOT/AST 51 U/L (15-37); SGPT/ALT 44 U/L (13-61); SODIUM 142 mmol/L (136-145); TOT PROT 8.4 g/dl (6.4-8.2)
[2018-10-16 21:08] VITALS: TEMP 97.9
--- NOTE | 2018-10-16 22:14 | PDOC ---
Documentation entered by Aleja Balbuena SCRIBE, acting as scribe for Airam Cottrell MD. Airam Cottrell MD: This documentation has been prepared by the felixibSree alexander Lincy, SCRIBE, under my direction and personally reviewed by me in its entirety. I confirm that the documentation accurately reflects all work, treatment, procedures, and medical decision making performed by me. Attending Attestation - Resident Resident Name: Maria Luisa Magana - ED Attending Attestation I have performed the following: I have examined & evaluated the patient, The case was reviewed & discussed with the resident, I agree w/resident's findings & plan - HPI HPI: 10/16/18 21:02 The patient is a 33-year-old female with a past medical history significant for asthma presents to the emergency department nausea and vomiting s/p heavy drinking last night. The patient reports she was "trying to keep up with the boys," and drank more than usual. Denies fever, chills. Denies chest pain or shortness of breath Allergies: NKDA. - Physicial Exam PE: 10/16/18 22:07 GENERAL: Awake, alert, and fully oriented, in no acute distress HEAD: No signs of trauma EYES: PERRLA, EOMI, sclera anicteric, conjunctiva clear ENT: Auricles normal inspection, hearing grossly normal, nares patent, oropharynx clear without exudates. Moist mucosa NECK: Normal ROM, supple, no lymphadenopathy, JVD, or masses LUNGS: Breath sounds equal, clear to auscultation bilaterally. No wheezes, and no crackles HEART: Regular rate and rhythm, normal S1 and S2, no murmurs, rubs or gallops ABDOMEN: Soft, nontender, normoactive bowel sounds. No guarding, no rebound. No masses EXTREMITIES: Normal range of motion, no edema. No clubbing or cyanosis. No cords, erythema, or tenderness NEUROLOGICAL: Cranial nerves II through XII grossly intact. Normal speech, normal gait SKIN: Warm, Dry, normal turgor, no rashes or lesions noted. - Medical Decision Making 10/16/18 23:30 Pt was hung over and dehydrated. Vomiting all night; now alcohol out of system and she feels great. Pt hydrated and given meds and she feels better. Stable to go home.
[2018-10-16 22:20] VITALS: BP 117/71; PULSE 84
--- NOTE | 2018-10-17 08:18 | EKG ---
Test Reason : Blood Pressure : / mmHG Vent. Rate : 071 BPM Atrial Rate : 071 BPM P-R Int : 126 ms QRS Dur : 106 ms QT Int : 442 ms P-R-T Axes : 004 068 046 degrees QTc Int : 480 ms NORMAL SINUS RHYTHM PROLONGED QT ABNORMAL ECG WHEN COMPARED WITH ECG OF 11-SEP-2017 15:07, VENT. RATE HAS DECREASED BY 48 BPM NONSPECIFIC T WAVE ABNORMALITY NO LONGER EVIDENT IN INFERIOR LEADS T WAVE INVERSION NOW EVIDENT IN ANTERIOR LEADS NONSPECIFIC T WAVE ABNORMALITY NO LONGER EVIDENT IN LATERAL LEADS CLINICAL CORRELATION IS RECOMMENDED Confirmed by MICHELLE RICKS, [facility] ([id number]) on 10/17/2018 8:17:38 AM Referred By: Confirmed By:ULI MARTINEZ MD
== END 2018-10-16 22:40 | disposition home or self-care (01) ==
LOC: JER 18:44
PROC: 3E033GC Introduction of Other Therapeutic Substance into Peripheral Vein, Percutaneous Approach (ICD-10-PCS; principal; 2018-10-16)
PROC: 3E033GC Introduction of Other Therapeutic Substance into Peripheral Vein, Percutaneous Approach (ICD-10-PCS; 2018-10-16)
PROC: 3E033NZ Introduction of Analgesics, Hypnotics, Sedatives into Peripheral Vein, Percutaneous Approach (ICD-10-PCS; 2018-10-16)
PROC: 3E0337Z Introduction of Electrolytic and Water Balance Substance into Peripheral Vein, Percutaneous Approach (ICD-10-PCS; 2018-10-16)
DX: F10.129 Alcohol abuse with intoxication, unspecified (principal)
CPT/HCPCS: 36415; 80053; 80307; 83690; 83735; 84484; 84703; 85025; 93005; 93010; 96365; 96375; 99285-25; J0131; J7030

== ENCOUNTER 2019-04-08 18:10 | Emergency (ER) | payer OTHER ==
--- NOTE | 2019-04-08 18:14 | PDOC ---
History of Present Illness - General Chief Complaint: Pain Stated Complaint: ABDOMINAL PAIN Time Seen by Provider: 04/08/19 18:14 - History of Present Illness Initial Comments: HPI: 33yo F with PMH of asthma and two c-sections presenting with nausea, vomiting, and abdominal pain. Patient admits to drinking five alcoholic drinks last night (three whiskey, one heineken beer, and one mixed drink with gin). Reports that she made it home around 3am, but "blacked out." Woke up around 12:30pm and realized her purse was missing. Had seven episodes of vomit since that time that was white and has since looked bilious. After vomiting, started having epigastric pain, rated 9/10, and described as "throbbing." Has had pain like this before, namely after drinking alcohol. Normal formed brown stool today without blood. Last menstrual period was 03/24/19. No sick contacts or recent travel. Admits to heavy drinking about once a week. Does not want to go to detox. Denies use of other recreational substances. No fever or chills. PCP: none ROS: Constitutional: no fever, no chills HEENT: no throat pain, no dysphagia Cardiovascular: no chest pain, no palpitations Respiratory: no cough, no shortness of breath Gastrointestinal: +abdominal pain, +vomiting Genitourinary: no dysuria, no hematuria Musculoskeletal: no myalgia, no arthralgia Skin: no rash, no itching Neurologic: no headache, no weakness Psych: no agitation, no anxiety PE: General: Awake, alert, and fully oriented, in no acute distress Head: No signs of trauma Eyes: EOMI, sclera anicteric ENT: Moist mucus membranes Neck: Normal ROM, supple Lungs: Lungs clear, Normal breath sounds Cardio: Regular rhythm, S1 and S2 present Abdomen: Tender to palpation in epigastrium. Soft, nondistended. +guarding, no rebound, no masses Extremities: Normal range of motion, Distal pulses present SKIN: Warm, Dry, normal turgor Neurologic: Cranial nerves II through XII grossly intact. Normal speech ED Course/MDM: DDX including but not limited to pancreatitis, gastritis, gastroenteritis, peptic ulcer, alcohol withdrawal Labs, EKG Zofran Fluids Pepcid Will reassess 04/08/19 18:14 CBC WBC 6.8 K/mm3 (4.0-10.0) 04/08/19 19:12 RBC 4.60 M/mm3 (3.60-5.2) 04/08/19 19:12 Hgb 13.5 GM/dL (10.7-15.3) 04/08/19 19:12 Hct 40.1 % (32.4-45.2) 04/08/19 19:12 MCV 87.2 fl (80-96) 04/08/19 19:12 MCH 29.3 pg (25.7-33.7) 04/08/19 19:12 MCHC 33.6 g/dl (32.0-36.0) 04/08/19 19:12 RDW 13.4 % (11.6-15.6) 04/08/19 19:12 Plt Count 236 K/MM3 (134-434) 04/08/19 19:12 MPV 8.0 fl (7.5-11.1) 04/08/19 19:12 Absolute Neuts (auto) 5.8 K/mm3 (1.5-8.0) 04/08/19 19:12 Neutrophils % 86.4 % (42.8-82.8) H 04/08/19 19:12 Lymphocytes % 10.8 % (8-40) D 04/08/19 19:12 Monocytes % 2.2 % (3.8-10.2) L 04/08/19 19:12 Eosinophils % 0.1 % (0-4.5) D 04/08/19 19:12 Basophils % 0.5 % (0-2.0) 04/08/19 19:12 Nucleated RBC % 0 % (0-0) 04/08/19 19:12 No leukocytosis CMP Sodium 142 mmol/L (136-145) 04/08/19 19:12 Potassium 3.8 mmol/L (3.5-5.1) 04/08/19 19:12 Chloride 109 mmol/L (98-107) H 04/08/19 19:12 Carbon Dioxide 24 mmol/L (21-32) 04/08/19 19:12 Anion Gap 9 MMOL/L (8-16) 04/08/19 19:12 BUN 11.2 mg/dL (7-18) 04/08/19 19:12 Creatinine 0.6 mg/dL (0.55-1.3) 04/08/19 19:12 Est GFR (CKD-EPI)AfAm 137.83 04/08/19 19:12 Est GFR (CKD-EPI)NonAf 118.92 04/08/19 19:12 Random Glucose 118 mg/dL (74-106) H 04/08/19 19:12 Calcium 8.8 mg/dL (8.5-10.1) 04/08/19 19:12 Total Bilirubin 0.3 mg/dL (0.2-1) 04/08/19 19:12 AST 21 U/L (15-37) 04/08/19 19:12 ALT 21 U/L (13-61) 04/08/19 19:12 Alkaline Phosphatase 80 U/L (45-117) 04/08/19 19:12 Total Protein 7.8 g/dl (6.4-8.2) 04/08/19 19:12 Albumin 4.0 g/dl (3.4-5.0) 04/08/19 19:12 Lipase 145 U/L (73-393) 04/08/19 19:12 Electrolytes unremarkable Cr normal No transaminitis Normal lipase test negative Pending UTox Patient feeling better, stating she is thirsty Just received zofran; will reassess Po challenge 04/08/19 20:02 Positive for marijuana; patient admits to smoking marijuana about one week ago Patient no longer nauseous Nontender abdominal exam EKG: rate 92, QTc 472, NSR, the ST segment in V2 appears abnormal, tpn added on ; lab notified 04/08/19 20:46 Complaining of headache and nausea; given reglan and more fluids First tpn undetectable Second tpn undetectable 04/08/19 21:50 Passed po challenge Patient feeling better Cardiology referral Primary care referral Return precautions Stable for discharge Past History - Past Medical History Allergies/Adverse Reactions: Allergies Allergy/AdvReac Type Severity Reaction Status Date / Time No Known Drug Allergies Allergy Verified 10/16/18 18:49 fruit Allergy Itching Uncoded 10/16/18 18:49 Home Medications: Ambulatory Orders Albuterol Sulfate [Proair Respiclick] 90 mcg IH PRN PRN 10/16/18 Anemia: No Asthma: Yes Cancer: No Cardiac Disorders: No CVA: No COPD: No CHF: No Dementia: No Diabetes: No GI Disorders: No Disorders: No HTN: No Hypercholesterolemia: No Liver Disease: No Seizures: No Thyroid Disease: No - Surgical History Abdominal Surgery: Yes (laproscopy) Appendectomy: No Cardiac Surgery: No Cholecystectomy: No Lung Surgery: No Neurologic Surgery: No Orthopedic Surgery: No - Psycho Social/Smoking Cessation Hx Smoking History: Never smoked Have you smoked in the past 12 months: No Hx Alcohol Use: Yes Drug/Substance Use Hx: No Substance Use Type: None Hx Substance Use Treatment: No ED Treatment Course - LABORATORY CBC & Chemistry Diagram: 04/08/19 19:12 04/08/19 19:12 Discharge - Discharge Information Problems reviewed: Yes Clinical Impression/Diagnosis: Nausea and vomiting Qualifiers: Vomiting type: unspecified Vomiting Intractability: unspecified Qualified Code( s): R11.2 - Nausea with vomiting, unspecified Condition: Improved Disposition: HOME - Follow up/Referral Referrals: [facility] – [place] [facility] [place] [Provider Group] Jose Goodwin MD [Staff Physician] - - Patient Discharge Instructions Patient Printed Discharge Instructions: DI for Alcohol Abuse, DI for Epigastric Pain Additional Instructions: You were seen in the ED for complaints of nausea and vomiting after alcohol drinking. Labs did not indicate acute pathology. We gave you fluids and anti- nausea medicine which helped you feel better. Follow-up with a primary care provider within 72 hours to discuss this ED visit and to further evaluate your symptoms. Your workup is not complete until you do so. You have been referred to the [facility] in case you do not have a primary care doctor. Call and make an appointment at the number provided. There were slight abnormalities with your EKG. Cardiac enzymes were normal. We referred you to a student accounts manager for further evaluation. Your workup is not complete until you do so. Call and make an appointment at the number provided. Immediate medical attention is required if you develop: worsening pain, high fevers, persistent nausea, vomiting, or any new or concerning symptoms. If you think you are having an emergency, call for emergency medical services or present to the emergency department right away. - Post Discharge Activity
[2019-04-08 18:30] VITALS: BMI 28.9
[2019-04-08] MEDS ORDERED: FAMOTIDINE 20 MG/50 ML IVPB 20 MG/50 ML MG IVPB ONE ×2 (19:00→19:29)
[2019-04-08] MEDS ORDERED: ONDANSETRON 4 MG/2 ML VIAL IVPUSH ONE (19:00)
[2019-04-08] MEDS ORDERED: SODIUM CHLORIDE 1,000 ML IV STA ×2 (19:00→21:20)
[2019-04-08 19:27] LABS: BASO % 0.5 % (0-2.0); EOS % 0.1 % (0-4.5); HEMATOCRIT 40.1 % (32.4-45.2); HEMOGLOBIN 13.5 GM/dL (10.7-15.3); LYMPH % 10.8 % (8-40); MCH 29.3 pg (25.7-33.7); MCHC 33.6 g/dl (32.0-36.0); MEAN CELL VOLUME 87.2 fl (80-96); MONO % 2.2 % (3.8-10.2); NEUT % 86.4 % (42.8-82.8); PLATELET COUNT 236 K/MM3 (134-434); RDW 13.4 % (11.6-15.6); WHITE BLOOD COUNT 6.8 K/mm3 (4.0-10.0)
[2019-04-08] MEDS ORDERED: ONDANSETRON 4 MG/2 ML VIAL ONE (19:29)
--- NOTE | 2019-04-08 19:42 | PDOC ---
Documentation entered by Arabella Weems SCRIBE, acting as scribe for Mindy Treviño DO. Mindy Treviño DO: This documentation has been prepared by the Dank kang Maria, SCRIBE, under my direction and personally reviewed by me in its entirety. I confirm that the documentation accurately reflects all work, treatment, procedures, and medical decision making performed by me. Attending Attestation - Resident Resident Name: Alyson Pinto - ED Attending Attestation I have performed the following: I have examined & evaluated the patient, The case was reviewed & discussed with the resident, I agree w/resident's findings & plan, Exceptions are as noted - HPI HPI: 04/08/19 18:34 See residents HPI. - Physicial Exam PE: 04/08/19 18:35 See residents PE. - Medical Decision Making 04/08/19 19:41 33-year-old female with epigastric pain and vomiting after ingesting alcohol Plan for labs, IV fluids and antiemetics We will reevaluate and if not significantly improved will consider imaging Hopeful DC home pending results 04/08/19 19:41
[2019-04-08 19:58] LABS: ALK PHOS 80 U/L (45-117); ANION GAP 9 MMOL/L (8-16); BILIRUBIN,TOTAL 0.3 mg/dL (0.2-1); BLOOD UREA NITROGEN 11.2 mg/dL (7-18); CALCIUM 8.8 mg/dL (8.5-10.1); CHLORIDE 109 mmol/L (98-107); CO2 24 mmol/L (21-32); CREATININE 0.6 mg/dL (0.55-1.3); GLUCOSE,RANDOM 118 mg/dL (74-106); POTASSIUM 3.8 mmol/L (3.5-5.1); SGOT/AST 21 U/L (15-37); SGPT/ALT 21 U/L (13-61); SODIUM 142 mmol/L (136-145); TOT PROT 7.8 g/dl (6.4-8.2)
[2019-04-08 20:15] LABS: COCAINE, UR NEGATIVE ng/ml (CUTOFF=300); METHADONE, UR NEGATIVE ng/ml (CUTOFF=300); OPIATES, URI NEGATIVE ng/ml (CUTOFF=300); PHENCYCLIDINE,URINE NEGATIVE ng/ml (CUTOFF=25); URINE AMPHETAMINES NEGATIVE ng/ml (CUTOFF=500); URINE BARBITURATES NEGATIVE ng/ml (CUTOFF=200); URINE BENZODIAZEPINES NEGATIVE ng/ml (CUTOFF=200)
[2019-04-08 20:17] VITALS: BP 128/94; PULSE 109; TEMP 98.3
[2019-04-08] MEDS ORDERED: METOCLOPRAMIDE HCL INJECTION 10 MG/2 ML VIAL IVPUSH ONE (21:20)
[2019-04-08] MEDS ORDERED: METOCLOPRAMIDE HCL INJECTION 10 MG/2 ML VIAL ONE (21:51)
--- NOTE | 2019-04-10 10:21 | EKG ---
Test Reason : Blood Pressure : / mmHG Vent. Rate : 092 BPM Atrial Rate : 092 BPM P-R Int : 136 ms QRS Dur : 094 ms QT Int : 382 ms P-R-T Axes : 051 067 032 degrees QTc Int : 472 ms NORMAL SINUS RHYTHM NORMAL ECG WHEN COMPARED WITH ECG OF 16-OCT-2018 20:20, NO SIGNIFICANT CHANGE WAS FOUND Confirmed by Kate Hamilton ([id number]) on 04/10/2019 10:21:42 AM Referred By: Confirmed By:Kate Hamilton
== END 2019-04-08 22:20 | disposition home or self-care (01) ==
LOC: JER 18:10
PROC: 3E033GC Introduction of Other Therapeutic Substance into Peripheral Vein, Percutaneous Approach (ICD-10-PCS; principal; 2019-04-08)
PROC: 3E033GC Introduction of Other Therapeutic Substance into Peripheral Vein, Percutaneous Approach (ICD-10-PCS; 2019-04-08)
PROC: 3E033GC Introduction of Other Therapeutic Substance into Peripheral Vein, Percutaneous Approach (ICD-10-PCS; 2019-04-08)
DX: F10.10 Alcohol abuse, uncomplicated (principal); R11.2 Nausea with vomiting, unspecified; F12.10 Cannabis abuse, uncomplicated
CPT/HCPCS: 36415; 80053; 80307; 82550; 82553; 83690; 84484; 84703; 85025; 93005; 93010; 96365; 96375; 99284-25; J7030